=== PATIENT | female | born 1950 | race African-American/Black ===

== ENCOUNTER 2018-08-18 06:06 | Day surgery (SDC) | payer MEDICARE ==
[2018-08-18 07:03] LABS: Basophils # (Auto) 0.1 K/mm3 (0.0-0.1); Basophils % (Auto) 0.9 % (0.0-1.8); Eosinophils # (Auto) 0.6 K/mm3 (0.0-0.4); Eosinophils % (Auto) 6.5 % (0.0-4.3); Hematocrit 39.3 % (30.3-42.9); Hemoglobin 13.6 gm/dl (10.1-14.3); Lymphocytes # (Auto) 3.4 K/mm3 (1.2-5.4); Lymphocytes % (Auto) 39.9 % (13.4-35.0); Mean Corpuscular HGB Conc 35 % (30-34); Mean Corpuscular Volume 87 fl (79-97); Monocytes # (Auto) 0.5 K/mm3 (0.0-0.8); Monocytes % (Auto) 6.4 % (0.0-7.3); Platelet Count 192 K/mm3 (140-440); Red Blood Count 4.53 M/mm3 (3.65-5.03); Red Cell Distribution Width 13.8 % (13.2-15.2)
[2018-08-18 07:19] LABS: Alanine Aminotransferase 36 units/L (7-56); Albumin 4.6 g/dL (3.9-5); BUN/Creatinine Ratio 21; Blood Urea Nitrogen 17 mg/dL (7-17); Calcium 9.2 mg/dL (8.4-10.2); Hemolysis Index 7
--- NOTE | 2018-08-18 07:27 | Anesthesia Consultation ---
Anesthesia Consult and Med Hx Date of service: 08/18/18 - Airway Anesthetic Teeth Evaluation: Edentulous ROM Head & Neck: Adequate Mental/Hyoid Distance: Adequate Mallampati Class: Class II Intubation Access Assessment: Probably Good - Pulmonary Exam CTA: Yes - Cardiac Exam Cardiac Exam: RRR - Pre-Operative Health Status ASA Pre-Surgery Classification: ASA2 Proposed Anesthetic Plan: General - Pulmonary Hx Smoking: No - Cardiovascular System Hx Hypertension: Yes - Central Nervous System Hx Psychiatric Problems: No - Endocrine Hx Renal Disease: Yes (CKD STAGE 3) Hx Non-Insulin Dependent Diabetes: Yes (prediabetic - diet controlled) - Other Systems Hx Alcohol Use: No
--- NOTE | 2018-08-18 07:27 | Anesthesia Day of Surgery ---
Anesthesia Day of Surgery - Day of Surgery Patient Examined: Yes Patient H&P Reviewed: Yes Patient is NPO: Yes
[2018-08-18] MEDS ORDERED: ANCEF/STERILE WATER 2 GM/20 ML 2 GM/20 ML SYRINGE IV SCH (07:30)
[2018-08-18] MEDS ORDERED: MARCAINE-EPI 0.5%-1:200,000 INFILTRATI ONE ×3 (07:33→08:33)
[2018-08-18] MEDS ORDERED: NACL 0.9% 250ML 0 ML ONE (07:33)
[2018-08-18] MEDS ORDERED: MARCAINE 0.5% INFILTRATI ONE (07:33)
[2018-08-18] MEDS ORDERED: SUBLIMAZE ONE ×2 (07:35→08:59)
[2018-08-18] MEDS ORDERED: DIPRIVAN 10 MG/ML IV ONE (07:35)
[2018-08-18] MEDS ORDERED: ZEMURON IV ONE (07:37)
[2018-08-18] MEDS ORDERED: QUELICIN ONE (07:37)
[2018-08-18] MEDS ORDERED: ZOFRAN IV PRN (08:00)
[2018-08-18] MEDS ORDERED: DILAUDID IV PRN (08:00)
[2018-08-18] MEDS ORDERED: ceFAZolin 2 GM in NACL 0.9% 100 ML IV ONE (08:00)
[2018-08-18] MEDS ORDERED: LACTATED RINGERS 1,000 ML IV SCH (08:00)
[2018-08-18] MEDS ORDERED: PEPCID IV NR (08:00)
[2018-08-18] MEDS ORDERED: NACL 0.9% IR ONE (08:33)
--- NOTE | 2018-08-18 08:58 | Discharge Summary ---
Short Stay Discharge Plan Activity: other (observe x 4 hrs then july d/c if stable. ice chips today. cl liq in am. low fat solid diet in 48 hrs. keep dressings dry x 5 days. no lifting over 5 lbs x 2 wks) Diet: other Wound: keep clean and dry (x 5 days) Additional Instructions: aleve I po q 6-8 hrs prn for breakthrough pain. Follow up with: ARMIDA STALLINGS MD [Staff Physician] - 7 Days
[2018-08-18] MEDS ORDERED: ZOFRAN ONE (08:59)
[2018-08-18] MEDS ORDERED: BLOXIVERZ ONE (08:59)
[2018-08-18] MEDS ORDERED: LACTATED RINGERS 1,000 ML ONE (08:59)
[2018-08-18] MEDS ORDERED: ROBINUL ONE (08:59)
--- NOTE | 2018-08-18 09:51 | Operative Report ---
PREOPERATIVE DIAGNOSIS: Gallbladder disease. POSTOPERATIVE DIAGNOSIS: Gallbladder disease. PROCEDURE: Laparoscopic cholecystectomy. SURGEON: Rayo White MD CRIME [employer]ORATORY ANALYST: Dr. Morley. ANESTHESIA: General. ESTIMATED BLOOD LOSS: Minimal. DRAINS: None. COMPLICATIONS: None. DESCRIPTION OF PROCEDURE: The patient was taken to the operating room, prepped and draped in usual sterile fashion. Veress needle was inserted and CO2 insufflation begun. A 5 mm trocar was then inserted and camera inserted. All other trocars were inserted under direct visualization. Gallbladder was then grasped at the fundus and infundibulum and retracted towards the right subphrenic space. A fair amount of omental adhesions were noted on the undersurface of the gallbladder. These were bluntly dissected free. Attention was then focused to Calot's triangle. The cystic duct and artery were delineated in their entire course. Both were then doubly clipped and transected. Hook electrocautery was used to dissect the gallbladder from the overlying liver bed. Prior to complete removal, the liver bed was inspected for bleeding and noted to be dry. The cystic duct and artery stumps were once again visualized. The clips were noted to be securely in place with no evidence of bleeding or bile leak. Gallbladder was then completely freed and brought out through the subxiphoid port. This area was inspected for bleeding and noted to be dry. Subxiphoid trocar was then gently reinserted. All other 5 mm ports were removed under direct visualization. No bleeding or oozing noted. Subxiphoid trocar was then used to expel the CO2 and the trocar removed. The fascia at this site was closed with a [id number] 0 Vicryl suture. The skin at all port sites was closed with subcuticular 4-0 Vicryl. A 0.5% Marcaine was infiltrated over the port site for postoperative pain relief. The patient tolerated the procedure well and left the OR in stable condition. JOB# [id number] ROBERT/KAMERON
[2018-08-18] MEDS ORDERED: HumuLIN R SUB-Q ONE (10:00)
[2018-08-18] MEDS ORDERED: PHENERGAN PR ONE ×2 (10:45→10:50)
[2018-08-18 12:52] VITALS: BP 118/44
--- NOTE | 2018-08-18 13:31 | Post Anesthesia Evaluation ---
- Post Anesthesia Evaluation Patient Participated: Yes Airway Patent: Yes Stable Respiratory Function: Yes Nausea/Vomiting: No Temp > 96.8F: Yes Pain Manageable: Yes Adequeate Hydration: Yes Anesthesia Complications: No
== END 2018-08-18 13:00 | disposition home or self-care (01) ==
LOC: OR 06:06
PROVIDERS: ATTEND Surgery
DX: K80.10 Calculus of gallbladder with chronic cholecystitis without obstruction (principal); I12.9 Hypertensive chronic kidney disease with stage 1 through stage 4 chronic kidney disease, or unspecified chronic kidney disease; E11.22 Type 2 diabetes mellitus with diabetic chronic kidney disease; N18.3 Chronic kidney disease, stage 3 (moderate); E78.00 Pure hypercholesterolemia, unspecified; Z79.82 Long term (current) use of aspirin; Z79.899 Other long term (current) drug therapy; Z98.890 Other specified postprocedural states
CPT/HCPCS: 36415; 47562; 80053; 82962; 85025; 88304; J0330; J0690; J1170; J2405; J2704; J2710; J3010; J7120; J1815; J7050